=== PATIENT | male | born 1985 | race African-American/Black ===

== ENCOUNTER 2017-05-07 01:49 | Emergency (ER) | payer SELFPAY ==
[~2017-05-07] VITALS: Ht 180.3 cm; Wt 88.5 kg
[2017-05-07 02:00] VITALS: BP 140/72
[2017-05-07] MEDS ORDERED: HYDROCODONE/APAP 5/325MG 1 EACH TABLET ONE (02:23)
[2017-05-07] MEDS: HYDROCODONE/APAP 5/325MG 1 EACH TABLET PO ONE (02:28)
== END 2017-05-07 02:29 | disposition home or self-care (01) ==
LOC: ER 01:55
DX: S39.012A Strain of muscle, fascia and tendon of lower back, initial encounter (principal); Z98.890 Other specified postprocedural states; V43.62XA Car passenger injured in collision with other type car in traffic accident, initial encounter; Y93.89 Activity, other specified; Y92.89 Other specified places as the place of occurrence of the external cause; Y99.8 Other external cause status
CPT/HCPCS: A4606; Z7610

== ENCOUNTER 2022-02-15 20:07 | Emergency (ER) | payer OTHER ==
[~2022-02-15] VITALS: Ht 175.3 cm; Wt 99.8 kg
[2022-02-15 20:56] VITALS: BP 143/83
[2022-02-15] MEDS ORDERED: LIDOCAINE HCL/PF 1% 30 ML VIAL TP ONE (21:30)
[2022-02-15] MEDS ORDERED: IBUP-1957 PO (21:56)
[2022-02-15] MEDS ORDERED: AMOX-427 PO (21:56)
== END 2022-02-15 22:21 | disposition home or self-care (01) ==
LOC: ER 20:18
DX: S01.511A Laceration without foreign body of lip, initial encounter (principal); Z60.2 Problems related to living alone; Z79.899 Other long term (current) drug therapy; W50.0XXA Accidental hit or strike by another person, initial encounter; Y93.64 Activity, baseball; Y92.89 Other specified places as the place of occurrence of the external cause; Y99.8 Other external cause status
CPT/HCPCS: 99283; 12013; J3490; A6403